=== PATIENT | male | born 1980 | race African-American/Black ===

== ENCOUNTER 2021-03-24 20:21 | Emergency (ER) | payer SELFPAY ==
[2021-03-24 20:39] VITALS: BP 142/89; TEMP 98.1; BMI 25.8
[2021-03-25] MEDS ORDERED: ACETAMINOPHEN 500 MG TABLET (FP) PO ONE (00:52)
[2021-03-25 01:47] VITALS: PULSE 85
== END 2021-03-25 01:47 | disposition home or self-care (01) ==
LOC: JER 20:21
DX: B34.9 Viral infection, unspecified (principal)
CPT/HCPCS: 71045-TC-FY; 87804; 87807; 99284-25; C9803; U0003; U0005